=== PATIENT | female | born 1940 | race Caucasian/White ===

== ENCOUNTER 2021-05-15 10:18 | Emergency (ER) | payer OTHER, BC ==
[~2021-05-15] VITALS: Ht 160 cm; Wt 59.9 kg
[2021-05-15 10:30] VITALS: BP_SYST 169
--- NOTE | 2021-05-15 10:30 | NUR ---
pt. bib DIL with concern of left leg swelling since yesterday and minimal pain 06/02, concerned because had swelling over thanksgiving that resolved but had informed PCP who states if it reocurs to seek assistance, on assessment minimal swelling noted when ompared to right leg, Homans sign was negative
--- NOTE | 2021-05-15 10:30 | NUR ---
Patient to ER bed 7 to gown for evaluation. Side rails up. Assumed care.
--- NOTE | 2021-05-15 10:42 | NUR ---
ER at bedside examining patient.
--- NOTE | 2021-05-15 11:06 | NUR ---
lab at bedside for blood draw
[2021-05-15 11:26] LABS: BASOPHILS % (AUTO) 0.6 % (0.0-2.0); EOSINOPHILS # (AUTO) 0.1 K/uL (0.0-0.4); EOSINOPHILS % (AUTO) 1.7 % (0.0-4.0); HEMATOCRIT 37.4 % (36-48); HEMOGLOBIN 12.5 g/dL (12.0-16.0); LYMPHOCYTES # (AUTO) 1.3 K/uL (1.0-5.5); LYMPHOCYTES % (AUTO) 22.7 % (20.5-51.5); MEAN CORPUSCULAR HEMOGLOBIN 31 pg (27-31); MEAN CORPUSCULAR HGB CONC 34 % (32-36); MEAN CORPUSCULAR VOLUME 91 fL (79.0-98.0); MONOCYTES # (AUTO) 0.4 K/uL (0.0-1.0); MONOCYTES % (AUTO) 6.6 % (1.7-9.3); NEUTROPHILS % (AUTO) 68.4 % (40.0-70.0); PLATELET COUNT (AUTO) 196 K/uL (130-430); RED BLOOD CELL COUNT(AUTO) 4.09 MIL/uL (4.2-6.2); RED CELL DISTRIBUTION WIDTH 12.9 % (9.0-15.0); WHITE BLOOD COUNT (AUTO) 5.9 K/uL (4.8-10.8)
[2021-05-15 12:15] LABS: ALANINE AMINOTRANSFERASE 23 U/L (12-78); ALBUMIN 3.7 g/dL (3.4-4.8); ANION GAP 9 (5-15); ASPARTATE AMINOTRANSFERASE 12 U/L (10-37); CALCIUM 9.3 mg/dL (8.4-11.0); CHLORIDE 99 mmol/L (98-107); CREATININE 0.66 mg/dL (0.55-1.30); GLUCOSE 159 mg/dL (70-99); POTASSIUM 4.2 mmol/L (3.5-5.1); SODIUM SERUM 134 mmol/L (136-145); TOTAL BILIRUBIN 0.2 mg/dL (0.0-1.0); UREA NITROGEN, BLOOD 17 mg/dL (8-21); URIC ACID 3.6 mg/dL (2.4-7.0)
[2021-05-15 12:24] LABS: C-REACTIVE PROTEIN QUANT < 0.2 mg/dL (0-0.5)
[2021-05-15 12:57] VITALS: BP_SYST 163
--- NOTE | 2021-05-15 12:58 | NUR ---
Patient given written and verbal discharge instructions and verbalizes understanding. ER Dr. Roque discussed with patient the results and treatment provided. Patient in stable condition. ID arm band removed. Patient educated on pain management and to follow up with PMD. Pain Scale 0. Opportunity for questions provided and answered.
[2021-05-15 13:24] LABS: ERYTHROCYTE SEDIMENTATION RATE 16 MM/HR (0-20)
== END 2021-05-15 12:57 | disposition home or self-care (01) ==
LOC: SED 10:18
DX: R60.0 Localized edema (principal)
CPT/HCPCS: 36415; 80053; 84550; 85025; 85651-TC; 86140; 93971; 99284

== ENCOUNTER 2021-07-14 18:26 | Emergency (ER) | payer OTHER, BC ==
[~2021-07-14] VITALS: Ht 160 cm; Wt 59.0 kg
[2021-07-14 18:34] VITALS: BP_SYST 161
[2021-07-14] MEDS ORDERED: TRAM50TA2 PO (19:34)
[2021-07-14 20:30] VITALS: BP_SYST 155
== END 2021-07-14 20:30 | disposition home or self-care (01) ==
LOC: SED 18:26
DX: M17.12 Unilateral primary osteoarthritis, left knee (principal); M25.562 Pain in left knee; I10 Essential (primary) hypertension; E11.9 Type 2 diabetes mellitus without complications; Z79.899 Other long term (current) drug therapy
CPT/HCPCS: 73564; 99283

== ENCOUNTER 2022-12-22 19:55 | Emergency (ER) | payer OTHER, MEDICAID ==
[~2022-12-22] VITALS: Ht 157.5 cm; Wt 50.8 kg
[~2022-12-22 19:55] MED LIST: TRAM50TA2 PO
[2022-12-22 20:06] VITALS: BP_SYST 142; PULSE 85; RESP 18; TEMP 98.4; O2SAT 96
[2022-12-22 21:52] LABS: BASOPHILS % (AUTO) 0.6 % (0.0-2.0); EOSINOPHILS # (AUTO) 0.1 K/uL (0.0-0.4); EOSINOPHILS % (AUTO) 1.1 % (0.0-4.0); HEMOGLOBIN 12.3 g/dL (12.0-16.0); LYMPHOCYTES # (AUTO) 1.9 K/uL (1.0-5.5); MEAN CORPUSCULAR HEMOGLOBIN 31 pg (27-31); MEAN CORPUSCULAR HGB CONC 33 % (32-36); MEAN CORPUSCULAR VOLUME 93 fL (79.0-98.0); MONOCYTES # (AUTO) 0.6 K/uL (0.0-1.0); MONOCYTES % (AUTO) 7.1 % (1.7-9.3); NEUTROPHILS # (AUTO) 5.5 K/uL (1.8-7.7); NEUTROPHILS % (AUTO) 68.2 % (40.0-70.0); PLATELET COUNT (AUTO) 223 K/uL (130-430); RED BLOOD CELL COUNT(AUTO) 3.98 MIL/uL (4.2-6.2); RED CELL DISTRIBUTION WIDTH 13.6 % (9.0-15.0); WHITE BLOOD COUNT (AUTO) 8.1 K/uL (4.8-10.8)
[2022-12-22 22:14] LABS: ALANINE AMINOTRANSFERASE 17 U/L (12-78); ANION GAP 11 (5-15); ASPARTATE AMINOTRANSFERASE 13 U/L (10-37); CALCIUM 10.7 mg/dL (8.4-11.0); CHLORIDE 97 mmol/L (98-107); CREATININE 0.67 mg/dL (0.55-1.30); GLUCOSE 81 mg/dL (74-106); TOTAL BILIRUBIN 0.2 mg/dL (0.0-1.0); UREA NITROGEN, BLOOD 19 mg/dL (8-21)
[2022-12-22 23:06] VITALS: BP_SYST 168; PULSE 86; RESP 16; TEMP 98.4; O2SAT 94
== END 2022-12-23 01:05 | disposition home or self-care (01) ==
LOC: SED 19:55
DX: R20.2 Paresthesia of skin (principal); F41.9 Anxiety disorder, unspecified; E11.9 Type 2 diabetes mellitus without complications; I10 Essential (primary) hypertension; E78.5 Hyperlipidemia, unspecified; Z79.899 Other long term (current) drug therapy
CPT/HCPCS: 36415; 80053; 84484; 85025; 93005; 99284